=== PATIENT | male | born 1940 | race Caucasian/White ===

== ENCOUNTER 2024-02-20 07:59 | Day surgery (SDC) | payer MEDICARE, OTHER, SELFPAY ==
[2024-02-20] VITALS (9 sets, daily range): BP systolic 100–117; BP diastolic 52–94; BMI 29.8
[2024-02-20] MEDS: NSS 303 ML IV (09:16)
[2024-02-20] MEDS: NSS 1000 IV (10:34)
--- NOTE | 2024-02-20 10:52 | ITS.CL.CATH ---
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
Cardiac Catheterization
Procedure Report:
CARDIAC CATHETERIZATION REPORT
Date of Procedure: 02/20/2024
Referring: Juan Dorantes MD
Indication: Atypical chest pain (anginal sounding although occurs at rest as well as with activity) with recent angiogram (January 2024) at [facility] in [place] where reportedly none of his 3 vein grafts were found for imaging
�
HEMODYNAMIC DATA
AO: 98/58
LV: 114/19
There is a mean gradient of 21 mmHg across the aortic valve consistent with moderate aortic stenosis
�
LEFT VENTRICULOGRAPHY: Mild anterolateral and apical hypokinesis with EF 54%
�
CORONARY ANGIOGRAPHY
Dominance: Right
Left Main: Normal
LAD: The LAD is occluded in the middle of a long stented segment involving the proximal to mid LAD. The site of occlusion is just distal to the takeoff of the moderate-sized first diagonal branch. The LAD fills distally via a widely patent vein
graft which touches down into the distal LAD with no disease distal to the touchdown site. The first diagonal branch is free of disease. A large D2 fills via a patent saphenous vein graft.
Circumflex: There is a small ramus intermedius with mild luminal disease. OM1 is small. The circumflex gives rise to a large OM2 which is subtotally occluded and fills distally via a widely patent vein graft. There is no disease distal to the
vein graft touchdown site in the large OM2. OM 3 is a small to medium size vessel with mild distal disease. The circumflex terminates in the AV groove distal to the takeoff of the low-lying OM 3.
RCA: The ungrafted RCA has mild luminal disease and gives rise to a medium to large RPDA and a moderate-sized posterolateral system
Bypass grafts:
1. The saphenous vein graft to the distal LAD is widely patent with trivial luminal irregularities in the proximal segment of the graft. There is excellent runoff in the LAD.
2. The saphenous vein graft to the very large second diagonal branch of the LAD is widely patent with excellent runoff and no disease distal to the touchdown site. There is retrograde flow to the origin of the diagonal then filling of a segment of
mid LAD including two medium sized septal perforators.
3. The saphenous vein graft to the large OM 2 is widely patent with excellent distal runoff and no disease in the OM 2 distal to the touchdown site. There is retrograde flow into the diffusely and severely diseased more proximal segment of OM 2.
�
Closure Device: 6 Korean Angio-Seal LFA
�
Radiation (mGy): 493
DAP (cm2.Gy): 44.5
Fluoroscopy time: 3.8 minutes
�
CONCLUSIONS
1:�Moderate aortic stenosis with mean gradient 21 mmHg
2:�Mild anterolateral and apical hypokinesis with EF 54%
3. Severe [place] triple-vessel CAD as described with patent SVG-distal LAD, SVG-D2 and SVG-OM 2 bypass grafts. Compared with the prior study from 03/18/2021, there is no significant change in his left ventricular wall motion and coronary anatomy
4. We will suggest to him that he switch from Pepcid 40 mg twice daily to Protonix 40 mg daily in the event that the symptoms are GI in etiology. Additionally he will continue aspirin 81 mg daily but stop Plavix. If symptoms persist consider
endoscopy
�
�
Copy to: Juan Dorantes MD, Amalia Malagon MD
�
Cayden Chew MD, [facility], [facility]
== END 2024-02-20 13:40 | disposition home or self-care (01) ==
LOC: CATH 07:59
PROVIDERS: ATTENDING PHYSICIAN Internal Medicine Cardiovascular Disease; FAMILY PHYSICIAN Family Medicine; OTHER PHYSICIAN Internal Medicine Cardiovascular Disease
DX: I25.10 Atherosclerotic heart disease of native coronary artery without angina pectoris (principal); I35.0 Nonrheumatic aortic (valve) stenosis; R07.89 Other chest pain; I10 Essential (primary) hypertension; E78.5 Hyperlipidemia, unspecified; I50.20 Unspecified systolic (congestive) heart failure; I11.0 Hypertensive heart disease with heart failure; Z79.02 Long term (current) use of antithrombotics/antiplatelets; Z79.82 Long term (current) use of aspirin; Z79.899 Other long term (current) drug therapy; Z95.1 Presence of aortocoronary bypass graft; Z95.5 Presence of coronary angioplasty implant and graft
CPT/HCPCS: 93005; 93459; C1760; C1894; Q9967

== ENCOUNTER 2025-01-29 11:44 | Day surgery (SDC) | payer MEDICARE, OTHER, SELFPAY ==
[2025-01-29] VITALS (9 sets, daily range): BP systolic 130–174; BP diastolic 74–103; BMI 28.3
[2025-01-29] MEDS: LOW STRENGTH ASPIRIN 81 MG PO (12:38)
[2025-01-29] MEDS: NSS 299 ML IV (12:40)
[2025-01-29 14:32] LABS: ACT-LR - POC > 397 Seconds (116-155)
[2025-01-29 14:48] LABS: ACT-LR - POC > 397 Seconds (116-155)
--- NOTE | 2025-01-29 14:54 | ITS.CL.ANGIO ---
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
Angioplasty
Procedure Report:
LEFT HEART CATHETERIZATION
Date of Procedure: January 29, 2025
Procedures performed:
1: Coronary angiography
2: Saphenous vein bypass graft angiography
3: Left ventriculography
4: Percutaneous coronary intervention of the saphenous vein graft to the left anterior descending artery with placement of a 3.0 x 18 mm [place] drug-eluting stent
Primary Care Provider: Dr. Amalia Constantino
Primary Rest Room Matron: Myself
INDICATION: The patient is an 84-year-old male with a complex past medical history including coronary artery disease status post CABG, permanent atrial fibrillation, status post Watchman procedure due to high fall risk in the setting of ambulatory
dysfunction, hypertension, and prostatism who presents with post non-STEMI angina. He was recently admitted to [facility] and ruled in for a small non-STEMI. He was treated conservatively given his multiple comorbidities and the fact that
he was pain-free shortly after admission. He has had postinfarct angina since that time and now presents for coronary angiography in light of crescendo angina post non-STEMI on aggressive antianginal therapy.
ACCESS: The patient was prepped and draped in usual sterile fashion. A 6 Austrian sheath was placed in the right radial artery using the Seldinger over the wire technique.
HEMODYNAMIC FINDINGS (mmHg):
LV(s/d,EDP): 144/11, 18
Ao(s/d,m): 126/67, 93
Mean aortic valve gradient on pullback: 20 mmHg
ANGIOGRAPHIC FINDINGS:
Single-plane Left Ventriculography in [place] Projection: Severe anterolateral hypokinesis. Moderate to severe apical hypokinesis. Overall moderate LV systolic dysfunction with a visually estimated ejection fraction of 40%. No significant mitral
gravitation.
Coronary Angiography:
Dominance: Right
Left Main: Not visualized. Previously noted to have a proximal LAD occlusion after a moderate-sized diagonal branch. The mid and distal LAD fills via a patent saphenous vein graft. The circumflex is also grafted with a patent vein graft to the
second obtuse marginal branch.
Right Coronary: The right coronary artery is a medium caliber dominant vessel that is widely patent with mild luminal irregularities and normal distal flow. Unchanged from prior angiography.
SVG to OM 2: Widely patent with very mild luminal irregularities. Unchanged from prior angiography.
SVG to first diagonal branch: Widely patent with excellent runoff. There is some backfilling to supply a small segment of the LAD that was previously stented and has severe disease. This is again unchanged from prior angiography.
SVG to LAD: There is a hazy 80% stenosis in the proximal portion of the vein graft which was not present on prior angiography from February 2024. This has the angiographic appearance of the recent culprit in an ACS. Despite this there is JAKY-3
distal flow.
Percutaneous Coronary Intervention (PCI): In light of his clinical presentation and the above angiographic findings, I elected to proceed with a PCI of the SVG to the LAD. This was clearly where the regional wall motion abnormality was the
proximal/ostial portion of the graft clearly appeared different compared to prior angiography in February of last year. The patient was pretreated with oral aspirin and Plavix. Unfractionated heparin was given. A 6 Austrian AL-1 guiding catheter was
used to engage the vein graft. A BMW wire was successfully advanced across the lesion and deep into the distal vessel. This facilitated delivery of a 5 mm spider wire distal protection device. Predilation was performed with a 2.0 x 15 mm balloon.
Next a 3.0 x 18 mm [place] drug-eluting stent was deployed at 16 javier for 16 seconds. The filter wire was removed and follow-up angiography showed brisk distal flow.
FINAL RESULT: 0% in-stent residual stenosis with an outstanding angiographic result and normal flow in all distal vessels.
Fluoroscopy Time (min): 13.4
Radiation Dose (mGy): 825
DAP (Gy.cm2): 86
Closure device: None. A TR band was applied for hemostasis at the right wrist.
Complications: None.
ASSESSMENT:
1: Successful PCI of the saphenous vein graft to the LAD with placement of a drug-eluting stent as described above.
2: Unchanged residual graft and RCA anatomy as described above.
3: New anterolateral and apical wall motion abnormality consistent with recent LAD territory event and drop in LV ejection fraction without significant mitral regurgitation.
4: Moderate aortic valvular stenosis.
CONCLUSIONS and RECOMMENDATIONS:
1: Medical therapy for drug-eluting stent with dual antiplatelet therapy with aspirin and Plavix uninterrupted for a year.
2: Medical therapy for coronary artery disease and hypertension.
3: Medical therapy for post MA LV dysfunction.
Liliya Carroll M.D.
[2025-01-29] MEDS: NSS 1000 IV (15:24)
[2025-01-29] MEDS: LANOXIN 125 MCG PO (15:55)
[2025-01-29] MEDS: LIPITOR 40 MG PO (15:55)
[2025-01-29] MEDS: TOPROL XL 12.5 MG PO (15:55)
[2025-01-29] MEDS: FLOMAX 0.4 MG PO (15:55)
--- NOTE | 2025-01-29 17:08 | W.PN.UPDATE ---
Update Note
Progress Note Update
84 yo WM s/p PCI VG-LAD (Same day). He denies cp, sob, natacha diet, voiding, R rad site with TR band intact, scant ecchymosis, EKG Afib. He will be on DAPT ASA/Plavix. We will increase atorvastatin to 40mg daily. He will stop Ranexa and decrease
isosorbide to 60mg daily. Cardiac rehab c/s. Activity restrictions reviewed. He will f/u Dr. Carroll in 2-4 weeks. He is for d/c home after 730p if rad site stable.
== END 2025-01-29 19:00 | disposition home or self-care (01) ==
LOC: CATH 11:44
PROVIDERS: ATTENDING PHYSICIAN Internal Medicine Interventional Cardiology; FAMILY PHYSICIAN Family Medicine
DX: I25.110 Atherosclerotic heart disease of native coronary artery with unstable angina pectoris (principal); I25.710 Atherosclerosis of autologous vein coronary artery bypass graft(s) with unstable angina pectoris; I21.4 Non-ST elevation (NSTEMI) myocardial infarction; N40.0 Benign prostatic hyperplasia without lower urinary tract symptoms; I10 Essential (primary) hypertension; I48.21 Permanent atrial fibrillation; Z95.1 Presence of aortocoronary bypass graft; Z79.82 Long term (current) use of aspirin; Z79.02 Long term (current) use of antithrombotics/antiplatelets; I35.0 Nonrheumatic aortic (valve) stenosis
CPT/HCPCS: 85347; 93005; 93459; C1725; C1769; C1874; C1884; C1887; C1894; C9604; J0153; Q9967